=== PATIENT | female | born 1955 | race Hispanic/Latino ===

== ENCOUNTER 2018-07-16 20:24 | Emergency (ER) | payer OTHER, BC ==
--- NOTE | 2018-07-16 20:30 | Emergency Department Report ---
Blank Doc - Documentation Documentation: This is a 63-year-old female that presents with lower back pain status post gr ound level fall today. Denies any head trauma. Denies any neck pain. This initial assessment diagnostic orders/clinical plan/treatment(s) is/are subject to change based on patient's health status, clinical progression and re- assessment by fellow clinical providers in the ED. Further treatment and workup at subsequent clinical providers discretion. Patient/guardians urged not to elope from ED s their condition may be serious if not clinically assessed and managed. Initial orders include: 1-Patient sent to MAIN for further evaluation and treatment 2- Xray
[2018-07-16 20:34] VITALS: BP 156/59
[2018-07-16] MEDS ORDERED: TORADOL IM ONE (21:52)
--- NOTE | 2018-07-16 22:16 | XRay Report ---
FINAL REPORT PROCEDURE: Lumbar spine. TECHNIQUE: AP and lateral views. HISTORY: Low back pain. COMPARISON: No prior studies are available for comparison. FINDINGS: The lumbar vertebrae have normal height and alignment. There are no fractures. There is no spondyloli sthesis. The disc spaces are well maintained. The sacrum and sacroiliac joints appear normal. There i s a moderate compression deformity of T12. The age of this injury is unknown. IMPRESSION: Compression fracture of T12. No evidence of lumbar spine injury.
[2018-07-16] MEDS ORDERED: DECADRON IM ONE (22:28)
--- NOTE | 2018-07-16 22:28 | Emergency Department Report ---
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 MD Complaint: back injury, fall Onset/Timin -: hour(s) Similar Symptoms Previously: Yes Place: street Radiation: buttocks, left leg, right leg Severity: moderate Severity scale (0 -10): 6 Quality: aching Consistency: constant Improves With: supine Worsens With: other (bending twisting ) Context: fall Associated Symptoms: denies: weakness, numbness, difficulty walking, difficulty urinating, incontinence, constipation - Related Data Previous Rx's Medication Instructions Recorded Last Taken Type Acetaminophen [Tylenol Extra 1,000 mg PO QID PRN #30 tablet 07/16/18 Unknown Rx Strength] Diclofenac Sodium [Voltaren] 100 gm TP QID PRN #1 tube 07/16/18 Unknown Rx Methocarbamol [Robaxin TAB] 750 mg PO BID PRN #20 tab 07/16/18 Unknown Rx Tramadol HCl [Ultram] 50 mg PO TID PRN #9 tablet 07/16/18 Unknown Rx Allergies Allergy/AdvReac Type Severity Reaction Status Date / Time No Known Allergies Allergy Verified 07/16/18 22:29 ED Review of Systems ROS: Stated complaint: FELL DOWN HILL Other details as noted in HPI Constitutional: denies: chills, fever Eyes: denies: eye pain, eye discharge, vision change ENT: denies: ear pain, throat pain Respiratory: denies: cough, shortness of breath, wheezing Cardiovascular: denies: chest pain, palpitations Endocrine: no symptoms reported Gastrointestinal: denies: abdominal pain, nausea, diarrhea Genitourinary: denies: urgency, dysuria, discharge Musculoskeletal: back pain, arthralgia Skin: denies: rash, lesions Neurological: denies: headache, weakness, paresthesias Psychiatric: denies: anxiety, depression Hematological/Lymphatic: denies: easy bleeding, easy bruising ED Past Medical Hx - Past Medical History Additional medical history: Hypothyroidism, Osteopenia - Surgical History Past Surgical History?: Yes Hx Cholecystectomy: Yes Additional Surgical History: Hysterectomy, - Social History Smoking Status: Former Smoker Substance Use Type: None - Medications Home Medications: Home Medications Medication Instructions Recorded Confirmed Last Taken Type Acetaminophen [Tylenol Extra 1,000 mg PO QID PRN #30 tablet 07/16/18 Unknown Rx Strength] Diclofenac Sodium [Voltaren] 100 gm TP QID PRN #1 tube 07/16/18 Unknown Rx Methocarbamol [Robaxin TAB] 750 mg PO BID PRN #20 tab 07/16/18 Unknown Rx Tramadol HCl [Ultram] 50 mg PO TID PRN #9 tablet 07/16/18 Unknown Rx ED Physical Exam - General Limitations: No Limitations General appearance: alert, in no apparent distress - Head Head exam: Present: atraumatic, normocephalic - Eye Eye exam: Present: normal appearance, PERRL, EOMI Pupils: Present: normal accommodation - ENT ENT exam: Present: mucous membranes moist - Neck Neck exam: Present: normal inspection - Respiratory Respiratory exam: Present: normal lung sounds bilaterally. Absent: respiratory distress - Cardiovascular Cardiovascular Exam: Present: regular rate, normal rhythm, normal heart sounds. Absent: systolic murmur, diastolic murmur, rubs, gallop - GI/Abdominal GI/Abdominal exam: Present: soft, normal bowel sounds - Rectal Rectal exam: Present: deferred - Extremities Exam Extremities exam: Present: normal inspection, full ROM, normal capillary refill. Absent: tenderness, pedal edema, joint swelling - Back Exam Back exam: Present: normal inspection, full ROM, tenderness (lumbar tenderness ) , muscle spasm, paraspinal tenderness, vertebral tenderness. Absent: CVA tenderness (R), CVA tenderness (L), rash noted - Expanded Back Exam Expanded Back exam: Absent: saddle anesthesia Back exam: Positive Straight Leg Raise: Left, Right - Neurological Exam Neurological exam: Present: alert, oriented X3, CN II-XII intact, normal gait, reflexes normal - Psychiatric Psychiatric exam: Present: normal affect, normal mood - Skin Skin exam: Present: warm, dry, intact, normal color. Absent: rash ED Course Vital Signs 07/16/18 20:31 Temperature 98.3 F Pulse Rate 91 H Respiratory 18 Rate Blood Pressure 156/59 ED Medical Decision Making - Radiology Data Radiology results: report reviewed, image reviewed Findings [facility] [address] [place] [address] XRay Report Signed Patient: MALATHI JESSICA MR#: [id number] : 1955 Acct:[id number] Age/Sex: 63 / F ADM Date: 07/16/18 Loc: ED Attending Dr: Ordering Physician: VIJAYA COHN NP Date of Service: 07/16/18 Procedure(s): XR spine lumbosacral 2-3V Accession Number(s): [id number] cc: VIJAYA COHN NP Fluoro Time In Minutes: FINAL REPORT PROCEDURE: Lumbar spine. TECHNIQUE: AP and lateral views. HISTORY: Low back pain. COMPARISON: No prior studies are available for comparison. FINDINGS: The lumbar vertebrae have normal height and alignment. There are no fractures. There is no spondylolisthesis. The disc spaces are well maintained. The sacrum and sacroiliac joints appear normal. There is a moderate compression deformity of T12. The age of this injury is unknown. IMPRESSION: Compression fracture of T12. No evidence of lumbar spine injury. Transcribed By: [facility] Dictated By: RAINER COOPER MD Electronically Authenticated By: RAINER COOPER MD Signed Date/Time: 07/16/182215 DD/ 14 TD/TT: 07/16/182214 - Medical Decision Making This is low back strain secondary to ground-level fall T12 compression fracture is an old injury however spinal cord is stable via x-ray physical exam supports that there is mild vertebral point tenderness at the lumbar spine mild paraspinous muscle tenderness or however range of motion is intact unrestricted there is no weakness no numbness straight leg there is no numbness tingling or paralysis no loss or decrease in bowel or bladder function pain is improved with medications given in ED including NSAIDs and muscle relaxants plan DC to home with prescriptions for Tylenol 3 Flexeril no pharyngeal patient will follow up with orthopedic surgery In 2-3 days follow with PCP in 2 days patient will return immediately should symptoms worsen patient verbalized understanding and agreement with discharge plan will be DC'd to home in stable condition at this time Critical care attestation.: If time is entered above; I have spent that time in minutes in the direct care of this critically ill patient, excluding procedure time. ED Disposition Clinical Impression: Fall Qualifiers: Encounter type: initial encounter Qualified Code(s): W19.XXXA - Unspecified fall, initial encounter Lumbar spine strain Qualifiers: Encounter type: initial encounter Qualified Code(s): S39.012A - Strain of muscle, fascia and tendon of lower back, initial encounter Disposition: DC-01 TO HOME OR SELFCARE Is pt being admited?: No Does the pt Need Aspirin: No Condition: Stable Instructions: Low Back Strain (ED), Core Strengthening Exercises (GEN), Fall Prevention (ED) Prescriptions: Acetaminophen [Tylenol Extra Strength] 1,000 mg PO QID PRN #30 tablet PRN Reason: pain Diclofenac Sodium [Voltaren] 100 gm TP QID PRN #1 tube PRN Reason: pain Methocarbamol [Robaxin TAB] 750 mg PO BID PRN #20 tab PRN Reason: back spasm Tramadol HCl [Ultram] 50 mg PO TID PRN #9 tablet PRN Reason: Pain , Severe (7-10) Referrals: JERRICA GARCIA MD [Staff Physician] - 3-5 Days MICHELLE JAMES [Primary Care Provider] - 3-5 Days Forms: Work/School Release Form(ED) Time of Disposition: 22:47
[2018-07-16] MEDS ORDERED: ROBAXIN PO ONE (22:30)
[2018-07-16] MEDS ORDERED: TYLENOL PO ONE (22:32)
[2018-07-16] MEDS ORDERED: TYLENOL ONE (22:32)
[2018-07-16] MEDS ORDERED: ZOFRAN IM ONE (23:34)
[2018-07-16] MEDS ORDERED: MORPHINE IM ONE (23:34)
== END 2018-07-17 00:30 | disposition home or self-care (01) ==
LOC: ED 20:24
DX: S39.012A Strain of muscle, fascia and tendon of lower back, initial encounter (principal); E03.9 Hypothyroidism, unspecified; Z90.49 Acquired absence of other specified parts of digestive tract; Z90.710 Acquired absence of both cervix and uterus; Z87.891 Personal history of nicotine dependence; W17.89XA Other fall from one level to another, initial encounter; Y93.89 Activity, other specified; Y92.89 Other specified places as the place of occurrence of the external cause; Y99.8 Other external cause status
CPT/HCPCS: 72100; 96372; 99283; J1100; J1885; J2270; J2405

== ENCOUNTER 2018-09-23 14:16 | Emergency (ER) | payer BC, OTHER ==
[2018-09-23 14:21] VITALS: BP 137/92
--- NOTE | 2018-09-23 14:33 | Emergency Department Report ---
Chief Complaint: Fall Stated Complaint: POSS BROKEN RIBS/PAIN Time Seen by Provider: 09/23/18 14:30 - HPI History of Present Illness: pt states that last night she slipped off the door frame and hit her right ribs against the car door pt has right rib pain pt states it hurts to move, cough, and breath PMHx hypothyroid, depression, restless leg non smoker occ drinker no drug use - Exam Vital Signs: Vital Signs 09/23/18 14:21 Temperature 97.9 F Pulse Rate 87 Respiratory 20 Rate Blood Pressure 137/92 [Right] O2 Sat by Pulse 96 Oximetry MSE screening note: Focused history and physical exam performed. Due to findings the following was ordered: XR right ribs with chest ED Disposition for MSE Condition: Stable
--- NOTE | 2018-09-23 15:17 | XRay Report ---
RIGHT RIBS, 3 VIEWS: History: Fall, right rib pain. Routine views of the rib cage demonstrate normal mineralization with no significant contour abnormalities, fractures or destructive lesions. PA view of the chest demonstrates no underlying cardiopulmonary abnormalities, fluid or pneumothorax. IMPRESSION: No right rib deformity is identified on x-ray.
[2018-09-23] MEDS ORDERED: NORCO 5/325 PO ONE (16:00)
[2018-09-23] MEDS ORDERED: TORADOL IM ONE (16:00)
--- NOTE | 2018-09-23 16:05 | Emergency Department Report ---
ED Fall HPI - General Chief Complaint: Fall Stated Complaint: POSS BROKEN RIBS/PAIN Time Seen by Provider: 09/23/18 14:30 Source: patient Mode of arrival: Ambulatory - History of Present Illness Initial Comments: Patient is a pleasant 62-year-old female comes to ER after a ground-level fall while getting her vehicle today. She fell forward hitting her lower anterior right thoracic rib cage on the car. She has bruising of the designated area. Pain on deep breathing. X-rays read by radiology as negative for fracture. - Related Data Previous Rx's Medication Instructions Recorded Last Taken Type Ibuprofen [Motrin] 800 mg PO Q8HR PRN #25 tablet 09/23/18 Unknown Rx traMADol [Ultram] 50 mg PO Q6HR PRN #12 tablet 09/23/18 Unknown Rx Allergies Allergy/AdvReac Type Severity Reaction Status Date / Time No Known Allergies Allergy Verified 07/16/18 22:29 ED Review of Systems ROS: Stated complaint: POSS BROKEN RIBS/PAIN Other details as noted in HPI Comment: All other systems reviewed and negative ED Past Medical Hx - Past Medical History Additional medical history: Hypothyroidism, Osteopenia - Surgical History Hx Cholecystectomy: Yes Additional Surgical History: Hysterectomy, - Social History Smoking Status: Never Smoker Substance Use Type: None - Medications Home Medications: Home Medications Medication Instructions Recorded Confirmed Last Taken Type Ibuprofen [Motrin] 800 mg PO Q8HR PRN #25 tablet 09/23/18 Unknown Rx traMADol [Ultram] 50 mg PO Q6HR PRN #12 tablet 09/23/18 Unknown Rx ED Physical Exam - General Limitations: No Limitations General appearance: alert - Head Head exam: Present: normocephalic - Eye Eye exam: Present: PERRL - ENT ENT exam: Present: mucous membranes moist - Neck Neck exam: Present: full ROM - Respiratory Respiratory exam: Present: normal lung sounds bilaterally, chest wall tenderness, other (bruising). Absent: respiratory distress, wheezes, rales, rhonchi, stridor, accessory muscle use, decreased breath sounds, prolonged e xpiratory - Cardiovascular Cardiovascular Exam: Present: regular rate - GI/Abdominal GI/Abdominal exam: Present: soft, normal bowel sounds - Rectal Rectal exam: Present: deferred - Extremities Exam Extremities exam: Present: normal inspection - Back Exam Back exam: Present: normal inspection - Neurological Exam Neurological exam: Present: alert, oriented X3, CN II-XII intact - Psychiatric Psychiatric exam: Present: normal affect, normal mood - Skin Skin exam: Present: warm, dry, ecchymosis - Expanded Skin Exam Expanded 1 - BRUISING ED Course Vital Signs 09/23/18 09/23/18 09/23/18 14:21 14:30 16:21 Temperature 97.9 F 97.9 F Pulse Rate 87 87 Respiratory 20 18 20 Rate Blood Pressure 137/92 Blood Pressure 137/92 [Right] O2 Sat by Pulse 96 96 Oximetry 09/23/18 16:22 Temperature Pulse Rate Respiratory 20 Rate Blood Pressure Blood Pressure [Right] O2 Sat by Pulse Oximetry ED Medical Decision Making - Radiology Data Radiology results: report reviewed, image reviewed xray neg medicated for pain dc home with dc plan of care Vital Signs 09/23/18 09/23/18 14:21 14:30 Temperature 97.9 F 97.9 F Pulse Rate 87 87 Respiratory 20 18 Rate Blood Pressure 137/92 Blood Pressure 137/92 [Right] O2 Sat by Pulse 96 96 Oximetry Critical care attestation.: If time is entered above; I have spent that time in minutes in the direct care of this critically ill patient, excluding procedure time. ED Disposition Clinical Impression: Fall, Rib contusion Disposition: DC-01 TO HOME OR SELFCARE Is pt being admited?: No Does the pt Need Aspirin: No Condition: Stable Instructions: Contusion in Adults (ED) Additional Instructions: med as ordered today diet as tolerated activity as tolerated hydrate well with water ice the area tonight deep breathing with splinting every 2 hours while awake Prescriptions: Ibuprofen [Motrin] 800 mg PO Q8HR PRN #25 tablet PRN Reason: Pain , Severe (7-10) traMADol [Ultram] 50 mg PO Q6HR PRN #12 tablet PRN Reason: Pain Referrals: PRIMARY CARE, [Primary Care Provider] - 3-5 Days Forms: Work/School Release Form(ED) Time of Disposition: 16:03
== END 2018-09-23 16:33 | disposition home or self-care (01) ==
LOC: ED 14:16
DX: S20.211A Contusion of right front wall of thorax, initial encounter (principal); E03.9 Hypothyroidism, unspecified; Z90.49 Acquired absence of other specified parts of digestive tract; Z90.710 Acquired absence of both cervix and uterus; W01.198A Fall on same level from slipping, tripping and stumbling with subsequent striking against other object, initial encounter; Y93.89 Activity, other specified; Y92.89 Other specified places as the place of occurrence of the external cause; Y99.8 Other external cause status
CPT/HCPCS: 71101; 96372; 99283; J1885

== ENCOUNTER 2018-09-28 09:03 | Emergency (ER) | payer BC ==
[2018-09-28 09:26] VITALS: BP 145/95
[2018-09-28] MEDS ORDERED: ZOFRAN ODT PO ONE (09:55)
[2018-09-28] MEDS ORDERED: DILAUDID IV ONE ×2 (09:55→11:20)
--- NOTE | 2018-09-28 10:01 | Emergency Department Report ---
ED Fall HPI - General Chief Complaint: Fall Stated Complaint: BRUISED RIB PAIN Time Seen by Provider: 09/28/18 09:27 Source: patient, old records reviewed Mode of arrival: Ambulatory Limitations: No Limitations - History of Present Illness Initial Comments: 63 year old female with a past medical history of hypo-thyroidism, osteopenia, previous cholecystectomy presents to the hospital with complaints of worsening right rib pain since fall on September 23. Patient fell on September 23 striking her lower right rib cage on her car. She presented to the ER after injury and had a right rib series that was negative for acute injury. Patient prescribed Motrin and tramadol for pain. Symptoms have been gradually improving until today. Patient states she was rushing to get to work this morning and thinks she re- aggravated her ribs. She complains of persistent sharp right sided lower anterior rib pain that is worse with movement, palpation, and deep inspiration. Pain improves when holding the area and splinting. She complains of shortness of breath due to pain with deep inspiration. No complaints of fever or cough. Her current medication is not helping for pain. 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 - Related Data Previous Rx's Medication Instructions Recorded Last Taken Type Ibuprofen [Motrin] 800 mg PO Q8HR PRN #25 tablet 09/23/18 Unknown Rx traMADol [Ultram] 50 mg PO Q6HR PRN #12 tablet 09/23/18 Unknown Rx oxyCODONE /ACETAMINOPHEN [Percocet 1 tab PO Q6HR PRN #20 tablet 09/28/18 Unknown Rx 5/325] Allergies Allergy/AdvReac Type Severity Reaction Status Date / Time No Known Allergies Allergy Verified 07/16/18 22:29 ED Review of Systems ROS: Stated complaint: BRUISED RIB PAIN Other details as noted in HPI Comment: All other systems reviewed and negative ED Past Medical Hx - Past Medical History Previous Medical History?: Yes Additional medical history: Hypothyroidism, Osteopenia - Surgical History Past Surgical History?: Yes Hx Cholecystectomy: Yes Additional Surgical History: Hysterectomy, - Social History Smoking Status: Never Smoker Substance Use Type: None - Medications Home Medications: Home Medications Medication Instructions Recorded Confirmed Last Taken Type Ibuprofen [Motrin] 800 mg PO Q8HR PRN #25 tablet 09/23/18 Unknown Rx traMADol [Ultram] 50 mg PO Q6HR PRN #12 tablet 09/23/18 Unknown Rx oxyCODONE /ACETAMINOPHEN [Percocet 1 tab PO Q6HR PRN #20 tablet 09/28/18 Unknown Rx 5/325] ED Physical Exam - General Limitations: No Limitations - Other Other exam information: General: Moderate distress with movement secondary to pain Head exam: Atraumatic, normocephalic Eyes exam: Normal appearance, pupils equal reactive to light, extraocular movements intact ENT: Moist mucous membrane, normal oropharynx Neck exam: Normal inspection, full range of motion, no meningismus nontender Respiratory exam: Clear to auscultation bilateral, no wheezes, rales, crackles, breath sounds equal bilaterally. Tenderness to right anterior lower ribs Cardiovascular: Normal rate and rhythm, normal heart sounds Abdomen: Soft, nondistended, and nontender, with normal bowel sounds, no rebou nd, or guarding Extremity: Full range of motion normal inspection no deformity, tenderness or edema Back: Normal Inspection, full range of motion, no tenderness Neurologic: Alert, oriented x3, cranial nerves intact, no motor or sensory deficit Psychiatric: normal affect, normal mood Skin: Warm, dry, intact ED Course Vital Signs 09/28/18 09:26 Temperature 98 F Pulse Rate 82 Respiratory 18 Rate Blood Pressure 145/95 [Left] O2 Sat by Pulse 96 Oximetry ED Medical Decision Making - Radiology Data Radiology results: report reviewed CT chest without contrast: Acute nondisplaced fracture of the right lateral seventh rib. Chronic appearing moderate anterior wedge compression fracture at T12 vertebral body. No chest wall or mediastinal hematoma, pleural effusion, pneumothorax, or lung contusion. Multiple small well corticated calcified loose bodies within the subcoracoid recess of the left shoulder glenohumeral capsule. Differential diagnosis includes synovial osteochondromatosis - Medical Decision Making Patient informed that a chest x-ray can miss a small fracture however, however no displaced fractures were identified on x-ray. Breath sounds are clear with normal room air saturation. No reports of fever or cough to suggest superimposed infection. Patient offered a repeat chest x-ray although thought to be low yield and declined. Iv Dilaudid and Zofran ordered for pain relief. Patient had to leave her shift because she was unable to work secondary to pain. Patient required a second dose of IV Dilaudid for adequate pain relief. CT chest confirms a nondisplaced fracture of the right seventh rib. Patient will be discharged home with incentive spirometer and Percocet. - Differential Diagnosis fracture, contusion, sprain, atelectasis, pneumonia Critical Care Time: No Critical care attestation.: If time is entered above; I have spent that time in minutes in the direct care of this critically ill patient, excluding procedure time. ED Disposition Clinical Impression: Right rib fracture Qualifiers: Encounter type: subsequent encounter Rib fracture type: single rib Fracture type: closed Fracture healing: with routine healing Qualified Code(s): S22.31XD - Fracture of one rib, right side, subsequent encounter for fracture with routine healing Disposition: DC- TO HOME OR SELFCARE Is pt being admited?: No Does the pt Need Aspirin: No Condition: Stable Instructions: Rib Fracture (ED) Additional Instructions: Take the medication as prescribed. Follow up with your doctor or the clinic/doctor provided. Return if symptoms worsen as indicated by your discharge instructions. Use the incentive spirometer as directed. Prescriptions: oxyCODONE /ACETAMINOPHEN [Percocet 5/325] 1 tab PO Q6HR PRN #20 tablet PRN Reason: Pain Referrals: PRIMARY CARE, [Primary Care Provider] - 3-5 Days MICHELLE JAMES MD [Staff Physician] - 3-5 Days Forms: Work/School Release Form(ED) Time of Disposition: 12:51
--- NOTE | 2018-09-28 12:26 | Cat Scan Report ---
EXAM: CT CHEST WO CON HISTORY: persistent right-sided rib pain after fall TECHNIQUE: Spiral axial CT images are obtained through the chest without the administration of intrav enous contrast. Additional sagittal and coronal reformatted images are reconstructed. COMPARISON: None available. FINDINGS: CARDIOVASCULAR: The heart size and mediastinal vascular structures are within normal limits for non- dedicated exam. There is no significant aortic or coronary atherosclerosis seen. No thoracic aortic aneurysm is noted. MEDIASTINUM AND NUPUR: No mass lesion, lymphadenopathy, or abnormal fluid collection is seen. LUNGS: There is no acute parenchymal infiltrate, lung nodule, or endobronchial obstructing lesion see n. No pleural effusion or pneumothorax is evident. CHEST WALL: There is an acute nondisplaced fracture of the right lateral seventh rib. There is a collar turner hilda appearing moderate anterior wedge compression fracture of the T12 vertebral body. There are no ch est wall lesions seen. The visualized bony structures are within normal limits. There are multiple s mall well-corticated calcific loose bodies within the subcoracoid recess of the left shoulder glenohu meral joint capsule; DDX includes synovial osteochondromatosis. No axillary lymphadenopathy is noted. UPPER ABDOMEN: Limited views through the upper abdomen demonstrate no gross acute abnormality. Status post cholecystectomy with mild intrahepatic and extrahepatic biliary ductal dilatation; no discernib le choledocholithiasis. NOTE: Suboptimal exam for post traumatic evaluation without IV contrast administration. Note that sma ll or subtle post traumatic changes can be obscured in this radiologic setting. Consider followup alvin luation with postcontrast CT for optimal assessment as clinically warranted. IMPRESSION: 1. Acute nondisplaced fracture of the right lateral seventh rib. 2. Chronic appearing moderate anterior wedge compression fracture of the T12 vertebral body. 3. No chest wall or mediastinal hematoma, pleural effusion, pneumothorax, or lung contusion seen. 4. Multiple small well-corticated calcific loose bodies within the subcoracoid recess of the left sh oulder glenohumeral joint capsule; DDX includes synovial osteochondromatosis. This document is electronically signed by Maci Stoner MD., Sep 28 2018 12:23:34 PM ET
== END 2018-09-28 14:07 | disposition home or self-care (01) ==
LOC: ED 09:03
DX: S22.31XA Fracture of one rib, right side, initial encounter for closed fracture (principal); E03.9 Hypothyroidism, unspecified; Z90.49 Acquired absence of other specified parts of digestive tract; Z90.710 Acquired absence of both cervix and uterus; W18.30XA Fall on same level, unspecified, initial encounter; Y93.89 Activity, other specified; Y92.89 Other specified places as the place of occurrence of the external cause; Y99.8 Other external cause status
CPT/HCPCS: 71250; 96374; 96376; 99283; J1170; Q0162